=== PATIENT | male | born 1955 | race Caucasian/White ===

== ENCOUNTER 2022-08-21 12:14 | Day surgery (SDC) | payer OTHER ==
[2022-08-19 15:11] VITALS: BMI 33.0
[2022-08-21] MEDS ORDERED: MIDAZOLAM HCL 2 MG/2 ML SINGLE DOSE VIAL ONE (14:50)
[2022-08-21] MEDS ORDERED: PROPOFOL 100 ML ONE (14:56)
[2022-08-21] MEDS ORDERED: ROPIVACAINE HCL 0.5% 30ML VIAL ONE (15:02)
[2022-08-21] MEDS ORDERED: BUPIVACAINE HCL/PF 0.5% (5MG/ML) 10 ML VIAL ONE (15:25)
[2022-08-21] MEDS ORDERED: ceFAZolin SODIUM 1 GM VIAL ONE (15:36)
[2022-08-21] MEDS ORDERED: DEXAMETHASONE SOD PHOSPHATE 4 MG/1 ML VIAL ONE (15:36)
[2022-08-21] MEDS ORDERED: PROMETHAZINE HCL 25 MG/1 ML VIAL IVPUSH PRN (16:43)
[2022-08-21] MEDS ORDERED: ONDANSETRON 4 MG/2 ML VIAL IVPUSH PRN (16:43)
[2022-08-21] MEDS ORDERED: oxyCODONE HCL 5 MG TABLET PO PRN ×2 (16:43)
[2022-08-21] MEDS ORDERED: ACETAMINOPHEN 1000 MG/100 ML BAG IVPB ONE (16:44)
[2022-08-21] MEDS ORDERED: KETOROLAC TROMETHAMINE 30 MG/1 ML VIAL IVPUSH ONE (16:44)
[2022-08-21] MEDS ORDERED: LACTATED RINGERS SOLUTION 1,000 ML IV SCH (16:45)
[2022-08-21] MEDS ORDERED: KETOROLAC TROMETHAMINE 30 MG/1 ML VIAL ONE (17:03)
[2022-08-21] MEDS ORDERED: ACETAMINOPHEN INJECTION 100 ML IVPB ONE (17:04)
[2022-08-21 18:15] VITALS: RESP 20
[2022-08-21 18:48] VITALS: TEMP 97.7
[2022-08-21 20:32] VITALS: BP 131/74; PULSE 66
== END 2022-08-21 20:33 | disposition home or self-care (01) ==
LOC: FASU 12:14
PROVIDERS: ATTEND Orthopaedic Surgery Sports Medicine
PROC: 0LQP0ZZ Repair Left Lower Leg Tendon, Open Approach (ICD-10-PCS; principal; 2022-08-21 15:46)
DX: S86.012A Strain of left Achilles tendon, initial encounter (principal); X58.XXXA Exposure to other specified factors, initial encounter; Y93.9 Activity, unspecified; Y92.9 Unspecified place or not applicable
CPT/HCPCS: 94760; C1713